=== PATIENT | female | born 1995 | race Two or more races ===

== ENCOUNTER → 2016-08-24 | Outpatient (CLI) | payer OTHER ==
--- NOTE | 2016-08-24 10:25 | RADIOLOGY REPORT (SQ) ---
EXAM DESCRIPTION: DUPLEX ART/ALTAF FLOW COMPLETE COMPLETED DATE/TIME: 08/24/2016 9:37 am REASON FOR STUDY: HTN I70.1 ATHEROSCLEROSIS OF RENAL ARTERY COMPARISON: None. TECHNIQUE: Realtime and static grayscale images acquired. Selected color Doppler, velocities and spe ctral images recorded. LIMITATIONS: Renal arteries were assessed as the renal nadja bilaterally. FINDINGS: RIGHT KIDNEY: RENAL ARTERY VELOCITIES: 150 cm/sec. Segmental artery velocity 89 cm/sec. RENAL VEIN: Color doppler flow present, patent. VELOCITY RATIO: 0.9. Normal waveforms. KIDNEY: Normal size. No hydronephrosis. No cortical thinning. LEFT KIDNEY: RENAL ARTERY VELOCITIES: 108 cm/sec. Segmental artery velocity 73 cm/sec. RENAL VEIN: Color doppler flow present, patent. VELOCITY RATIO: 0.71. Normal waveforms. KIDNEY: Normal size. No hydronephrosis. No cortical thinning BLADDER: Unremarkable. OTHER: No other significant finding. IMPRESSION: NO DOPPLER EVIDENCE OF HEMODYNAMICALLY SIGNIFICANT RENAL ARTERY STENOSIS. COMMENT: NORMAL RENAL ARTERY/AORTA VELOCITY RATIO IS LESS THAN OR EQUAL TO 3.5. TECHNICAL DOCUMENTATION: JOB ID: [id number] [employer]- All Rights Reserved
== END ==
LOC: RAD 08:52
PROVIDERS: ATTEND Internal Medicine Clinical Cardiac Electrophysiology
DX: I70.1 Atherosclerosis of renal artery (principal)
CPT/HCPCS: 93975